=== PATIENT | male | born 1945 | race Hispanic/Latino ===

== ENCOUNTER → 2018-06-30 | Day surgery (SDC) | payer MEDICARE ==
[2018-06-28 13:17] LABS: BASOPHILS % 0.4 % (0.0-1.0); EOSINOPHILS % 0.6 % (0.0-6.0); HEMATOCRIT 39.8 % (38.2-49.6); HEMOGLOBIN 13.5 g/dL (14.0-18.0); LYMPHOCYTES # (AUTO) 1.1 (1.0-3.2); LYMPHOCYTES % 15.8 % (18.0-39.1); MEAN CORPUSCULAR HEMOGLOBIN 32.9 pg (28-32); MEAN CORPUSCULAR HGB CONC 33.9 g/dL (31-35); MEAN CORPUSCULAR VOLUME 97.1 fL (81-99); MONOCYTES # (AUTO) 0.8 (0.2-0.8); MONOCYTES % 10.8 % (4.4-11.3); NEUTROPHILS # (AUTO) 5.1 (2.1-6.9); NEUTROPHILS % 71.7 % (38.7-80.0); PLATELET COUNT 227 x10e3/uL (140-360); RED CELL DISTRIBUTION WIDTH 13.1 % (11.7-14.4)
[2018-06-28 13:33] LABS: ANION GAP 15.2 mmol/L (8-16); CALCIUM 9.7 mg/dL (8.4-10.2); CREATININE, SERUM 1.26 mg/dL (0.72-1.25); POTASSIUM 4.2 mmol/L (3.5-5.1)
--- NOTE | 2018-06-28 14:10 | Diagnostic Imaging Report ---
EXAMINATION: PA and lateral views of the chest. COMPARISON: None CLINICAL HISTORY: Preoperative exam for finger surgery DISCUSSION: Lungs are well-inflated. No focal consolidation, pleural effusion, or pneumothorax. Postsurgical changes of the mediastinum with sternotomy wires and surgical clips. Tortuous thoracic aorta with atherosclerotic calcification. No pulmonary edema. No acute osseous abnormalities. Healed fracture deformities of the posterior right sixth and seventh ribs. IMPRESSION: Postsurgical changes of the mediastinum without acute cardiopulmonary abnormality. Signed by: Dr. Remi Good M.D. on 06/28/2018 2:04 PM
[~2018-06-30] MED LIST: ALLOPURINOL300 MG PO; ASPIRIN81 MG PO; BACITRACIN 50,000 UNIT VIAL ONE; BUPIVACAINE HCL 0.5% INJ 30 ML VIAL INJ ONE; CEFAZOLIN SOD 2 GM/D5W 50ML 50 ML IV ONE; DIOVAN80 MG PO; FENTANYL CITRATE/PF 100MCG/2 ML INJ ONE; KETAMINE HCL INJ 50 MG/ML 10 ML VIAL ONE; METFORMIN HCL500 MG PO; MIDAZOLAM HCL 2 MG/2 ML VIAL ONE; NAPROXEN250 MG PO; PANTOPRAZOLE SO40 MG PO; SIMVASTATIN40 MG PO; VITAMIN D400 UNIT PO
[2018-06-30 13:30] VITALS: BP 167/82
--- NOTE | 2018-07-01 14:27 | Operative Report ---
DATE OF PROCEDURE: June 30, 2018 PREOPERATIVE DIAGNOSIS: Displaced right 4th and 5th metacarpal fractures. POSTOPERATIVE DIAGNOSIS: Comminuted base of the 5th right metacarpal fracture and displaced right 4th metacarpal fracture. PROCEDURES PERFORMED: The patient underwent a closed reduction and percutaneous pinning of the right 5th metacarpal followed by a closed reduction and percutaneous pinning of the right 4th metacarpal. PHOTOGRAPHER ASSISTANT: None. ANESTHESIA: General endotracheal intubation anesthesia. IV FLUIDS: Per the anesthesia record. BRIEF DESCRIPTION OF THE PATIENT'S OPERATIVE PROCEDURE: Mr. Roth was taken to the operating room, placed in supine position on the operating table. Following the induction of general anesthesia as well as endotracheal intubation, the patient's right upper extremity was examined under anesthesia. He was found to have bruising and ecchymosis involving his right hand. Fluoroscopic evaluation of the right hand demonstrated fractures at the base of the 4th and 5th metacarpals. The 5th metacarpal was dorsally subluxed and abducted. The 4th metacarpal was dorsally subluxed. There was comminution at the base of the 5th metacarpal. The patient's upper extremity was prepped and draped in standard surgical fashion. Case was begun by attempting a closed reduction of the metacarpal injuries. The 5th metacarpal was realigned with its base and given the degree of comminution, the decision was made to percutaneous pin the metacarpal injury in the best possible alignment. This was achieved with 2 pins, transfixing the shaft of the metacarpal in line with the base and the carpal-metacarpal joint. These pins were inserted and then checked fluoroscopically and found to hold the 5th metacarpal in appropriate alignment. Attention was then turned to the patient's 4th metacarpal. The metacarpal was still found to be dorsally subluxed in relation to its base. The fracture was held in reduced position and a single pin was advanced from distal to proximal transfixing the fracture in its appropriate alignment with the base. The position of those pins as well as the alignment of the injury was then assessed using fluoroscopy and found to be appropriate. The pin sites were dressed sterilely and a 3-finger ulnar gutter splint was applied to the patient's upper extremity. He was then awakened and taken to the post anesthesia care unit in stable condition. Job#: [id number] JAMIL
== END | disposition home or self-care (01) ==
LOC: OR 08:08
PROVIDERS: ATTEND Specialist
DX: S62.316A Displaced fracture of base of fifth metacarpal bone, right hand, initial encounter for closed fracture (principal); S62.314A Displaced fracture of base of fourth metacarpal bone, right hand, initial encounter for closed fracture; M10.9 Gout, unspecified; Z95.5 Presence of coronary angioplasty implant and graft; I10 Essential (primary) hypertension; Z95.1 Presence of aortocoronary bypass graft; E11.9 Type 2 diabetes mellitus without complications; K21.9 Gastro-esophageal reflux disease without esophagitis; I25.2 Old myocardial infarction; I25.10 Atherosclerotic heart disease of native coronary artery without angina pectoris
CPT/HCPCS: 26608 ×2; 36415 ×2; 71046; 76000; 80048; 82948; 85025; 93005; J2250